=== PATIENT | male | born 1965 | race Hispanic/Latino ===

== ENCOUNTER 2019-11-20 08:35 | Day surgery (SDC) | payer MEDICAID ==
[2019-11-20] VITALS (8 sets, daily range): BP systolic 91–111; BP diastolic 47–74
[~2019-11-20] VITALS: Ht 177.8 cm; Wt 95.3 kg
[~2019-11-20 08:35] MED LIST: LEVE-43 PO; RISP1TAB26 PO; SODIUM CHLORIDE 0.9% 1000ML 1,000 ML IV ONE
[2019-11-20] MEDS ORDERED: PROPOFOL 10 MG/ML 20ML VIAL IV ONE (10:21)
[2019-11-20] MEDS ORDERED: MIDAZOLAM HCL 1 MG/ML 2ML VIAL ONE (10:46)
== END 2019-11-20 11:30 | disposition home or self-care (01) ==
LOC: DAH 08:35 → ENDO 08:35
PROVIDERS: ATTEND Internal Medicine Gastroenterology
DX: R19.4 Change in bowel habit (principal); K63.5 Polyp of colon; K22.8 Other specified diseases of esophagus; K29.70 Gastritis, unspecified, without bleeding; K22.70 Barrett's esophagus without dysplasia; I25.10 Atherosclerotic heart disease of native coronary artery without angina pectoris; G40.909 Epilepsy, unspecified, not intractable, without status epilepticus; F31.9 Bipolar disorder, unspecified; G43.909 Migraine, unspecified, not intractable, without status migrainosus; Z79.899 Other long term (current) drug therapy; Z98.890 Other specified postprocedural states
CPT/HCPCS: 43239; 45385; A4215; A4221; A4222; A4223; A4606; A4620; A4657; A4663; J2250; J2704; J7030